=== PATIENT | female | born 1975 | race American Indian/Alaskan Native ===

== ENCOUNTER 2016-08-03 12:10 | Emergency (ER) | payer SELFPAY ==
[2016-08-03 13:06] VITALS: BP 119/84
== END 2016-08-03 17:30 | disposition left against medical advice (07) ==
LOC: ED 12:10
DX: N76.4 Abscess of vulva (principal); I10 Essential (primary) hypertension; F17.200 Nicotine dependence, unspecified, uncomplicated; Z88.2 Allergy status to sulfonamides; Z53.21 Procedure and treatment not carried out due to patient leaving prior to being seen by health care provider